=== PATIENT | female | born 1960 | race Caucasian/White ===

== ENCOUNTER 2017-12-29 21:40 | Observation (INO) | payer OTHER ==
[~2017-12-29] VITALS: Ht 165.1 cm; Wt 111.0 kg
[~2017-12-29 21:40] MED LIST: ALPR1TAB2 PO; ASPI-650 PO; CARV12.543 PO; CARV6.2512 PO; CYCL-259 PO; FLEC100T PO; FURO-92 PO; HYDR25TA6 PO; INSU100C SQ-INSULIN; INSU100V8 SQ; LEVO75TA5 PO; LISI5TAB7 PO; POTA25TA4 PO; PROVASTATIN; TRAM-47 PO
[2017-12-30 00:32] VITALS: BP 136/79
[2017-12-30] MEDS ORDERED: DOCUSATE 100 MG CAPSULE PO PRN (01:30)
[2017-12-30] MEDS ORDERED: GUAIFENESIN/DM 200-20MG, 10ML UDC PO PRN (01:30)
[2017-12-30] MEDS ORDERED: BUTALB/APAP/CAFFEINE 50MG/325MG/40MG PO ONE (01:30)
[2017-12-30] MEDS ORDERED: PRAV40TA2 PO ×2 (01:53→02:08)
[2017-12-30] MEDS ORDERED: CARV12.543 PO (02:08)
[2017-12-30] MEDS ORDERED: DULO20CA45 PO (02:08)
[2017-12-30] MEDS ORDERED: LISI-170 PO (02:08)
[2017-12-30] MEDS ORDERED: APIX5TAB PO (02:08)
[2017-12-30] MEDS ORDERED: PARO20TA98 PO (02:08)
[2017-12-30] MEDS ORDERED: PAROXETINE 20 MG TABLET PO SCH ×2 (02:30→09:00)
[2017-12-30 05:28] LABS: BASOPHILS # (AUTO) 0.14 x10^3/uL (0-0.1); BASOPHILS % (AUTO) 1 % (0-1); EOSINOPHILS # (AUTO) 0.24 x10^3/uL (0-0.4); EOSINOPHILS % (AUTO) 2 % (1-7); LYMPHOCYTES # (AUTO) 4.09 x10^3/uL (1-3.4); LYMPHOCYTES % (AUTO) 38 % (22-44); MD NO; MEAN CORPUSCULAR HEMOGLOBIN 29.1 pg (27.0-34.8); MEAN CORPUSCULAR HGB CONC 34.3 g/dL (32.4-35.8); MEAN CORPUSCULAR VOLUME 84.7 fL (80-100); MEAN PLATELET VOLUME 9.1 fL (7.4-10.4); MONOCYTES # (AUTO) 0.74 x10^3/uL (0.2-0.8); MONOCYTES % (AUTO) 7 % (2-9); NEUTROPHILS # (AUTO) 5.56 x10^3/uL (1.8-6.8); NEUTROPHILS % (AUTO) 52 % (42-75); PLATELET COUNT 223 x10^3/uL (130-400); RED BLOOD COUNT 5.21 x10^6/uL (3.82-5.3); RED CELL DISTRIBUTION WIDTH 12.9 % (9.6-15.2)
[2017-12-30 05:46] LABS: CHLORIDE 101 mmol/L (98-107)
[2017-12-30 05:49] LABS: HEMOGLOBIN A1C 9.1 % (4.2-6.3)
[2017-12-30 05:54] LABS: TROPONIN I < 0.015 ng/mL (0.000-0.045)
[2017-12-30] MEDS ORDERED: CARVEDILOL 12.5 MG TABLET PO SCH (06:00)
[2017-12-30 06:02] LABS: ALBUMIN 3.3 g/dL (3.4-5.0); ANION GAP 9 mmol/L (5-15); CALCIUM 8.9 mg/dL (8.5-10.1); CHOL/HDL RATIO 3.3; CHOLESTEROL, TOTAL 137 mg/dL (140-239); CREATININE 1.02 mg/dL (0.55-1.02); HDL CHOL % 30 % (28-40); HDL CHOLESTEROL (DIRECT) 41 mg/dL (40-60); LDL CHOLESTEROL,CALCULATED 69 mg/dL (54-169); LDL/HDL RATIO 1.7 (0.5-3.0); THYROID STIMULATING HORMONE 0.765 mIU/L (0.358-3.740); TRIGLYCERIDES 134 mg/dL (50-200); VLDL CHOLESTEROL 27 mg/dL (0-25)
[2017-12-30] MEDS ORDERED: INSULIN LISPRO 100 UNITS/ML, PEN SQ-INSULIN SCH (07:00)
[2017-12-30 07:08] VITALS: BP 132/80
[2017-12-30] MEDS ORDERED: MAGNESIUM SULFATE PMX 2GM/50ML 50 ML IV ONE (07:30)
[2017-12-30] MEDS ORDERED: POTASSIUM CHLORIDE 20 MEQ TAB.ER.PRT PO SCH (07:30)
[2017-12-30] MEDS: POTASSIUM CHLORIDE 20 MEQ TAB.ER.PRT PO SCH ×2 (08:11→16:55)
[2017-12-30] MEDS: LEVOTHYROXINE 88 MCG TABLET PO SCH (08:11)
[2017-12-30] MEDS ORDERED: DULOXETINE 20 MG CAPSULE.DR PO SCH (09:00)
[2017-12-30] MEDS ORDERED: APIXABAN 5 MG TABLET PO SCH (09:00)
[2017-12-30] MEDS ORDERED: PROCHLORPERAZINE 5 MG/ML, 2ML IVPush PRN (10:00)
[2017-12-30] MEDS ORDERED: KETOROLAC 30 MG/1 ML IVPush PRN (10:00)
[2017-12-30 11:20] LABS: TROPONIN I < 0.015 ng/mL (0.000-0.045)
[2017-12-30] MEDS: SODIUM CHLORIDE 0.9% 1,000 ML IV SCH (11:37)
[2017-12-30] MEDS: INSULIN LISPRO 100 UNITS/ML, PEN SQ-INSULIN SCH ×3 (11:41→21:47)
[2017-12-30] MEDS: BUTALB/APAP/CAFFEINE 50MG/325MG/40MG PO PRN ×2 (11:56→21:46)
[2017-12-30 13:23] VITALS: BP 127/79
[2017-12-30] MEDS ORDERED: PRAVASTATIN 40 MG TABLET PO SCH (21:00)
[2017-12-30 21:19] VITALS: BP 139/75
[2017-12-30] MEDS: DULOXETINE 20 MG CAPSULE.DR PO SCH (21:45)
[2017-12-30] MEDS: LISINOPRIL 20 MG TABLET PO SCH (21:46)
[2017-12-30] MEDS: PRAVASTATIN 40 MG TABLET PO SCH (21:46)
[2017-12-31 02:00] VITALS: BP 139/80
[2017-12-31] MEDS: BUTALB/APAP/CAFFEINE 50MG/325MG/40MG PO PRN ×3 (04:04→21:05)
[2017-12-31 07:05] VITALS: BP 131/76
[2017-12-31] MEDS: INSULIN LISPRO 100 UNITS/ML, PEN SQ-INSULIN SCH ×4 (07:46→20:34)
[2017-12-31] MEDS: ONDANSETRON 2MG/ML, 2ML IVPush PRN ×2 (08:28→15:44)
[2017-12-31] MEDS: LEVOTHYROXINE 88 MCG TABLET PO SCH (09:00)
[2017-12-31] MEDS: SODIUM CHLORIDE 0.9% 1,000 ML IV SCH (10:00)
[2017-12-31 13:47] VITALS: BP_SYST 119; BP_SYST 123; BP_SYST 132; BP_DIAS 79; BP_DIAS 80; BP_DIAS 83
[2017-12-31] MEDS ORDERED: PROCHLORPERAZINE 5 MG/ML, 2ML IVPush PRN (16:00)
[2017-12-31 20:00] VITALS: BP 144/80
[2017-12-31] MEDS: DULOXETINE 20 MG CAPSULE.DR PO SCH (21:05)
[2017-12-31] MEDS: PRAVASTATIN 40 MG TABLET PO SCH (21:05)
[2017-12-31] MEDS: LISINOPRIL 20 MG TABLET PO SCH (21:05)
[2018-01-01] VITALS (8 sets, daily range): BP systolic 116–162; BP diastolic 72–87
[2018-01-01 05:55] LABS: CHLORIDE 104 mmol/L (98-107)
[2018-01-01 05:56] LABS: BASOPHILS # (AUTO) 0.11 x10^3/uL (0-0.1); BASOPHILS % (AUTO) 2 % (0-1); EOSINOPHILS # (AUTO) 0.32 x10^3/uL (0-0.4); EOSINOPHILS % (AUTO) 5 % (1-7); LYMPHOCYTES # (AUTO) 3.44 x10^3/uL (1-3.4); LYMPHOCYTES % (AUTO) 48 % (22-44); MD NO; MEAN CORPUSCULAR HEMOGLOBIN 28.8 pg (27.0-34.8); MEAN CORPUSCULAR HGB CONC 34.1 g/dL (32.4-35.8); MEAN CORPUSCULAR VOLUME 84.4 fL (80-100); MEAN PLATELET VOLUME 9.2 fL (7.4-10.4); MONOCYTES # (AUTO) 0.47 x10^3/uL (0.2-0.8); MONOCYTES % (AUTO) 7 % (2-9); NEUTROPHILS # (AUTO) 2.79 x10^3/uL (1.8-6.8); NEUTROPHILS % (AUTO) 39 % (42-75); PLATELET COUNT 175 x10^3/uL (130-400); RED BLOOD COUNT 4.74 x10^6/uL (3.82-5.3); RED CELL DISTRIBUTION WIDTH 12.6 % (9.6-15.2)
[2018-01-01 06:04] LABS: ALANINE AMINOTRANSFERASE 34 U/L (12-78); ALKALINE PHOSPHATASE 77 U/L (45-117); ANION GAP 6 mmol/L (5-15); BILIRUBIN,TOTAL 0.7 mg/dL (0.2-1.0); CALCIUM 8.6 mg/dL (8.5-10.1); CREATININE 1.04 mg/dL (0.55-1.02); TOTAL PROTEIN 6.7 g/dL (6.4-8.2)
[2018-01-01] MEDS: INSULIN LISPRO 100 UNITS/ML, PEN SQ-INSULIN SCH ×4 (07:00→21:08)
[2018-01-01] MEDS ORDERED: REGADENOSON 0.4 MG/5 ML SYRINGE ONE ×2 (08:19→09:49)
[2018-01-01] MEDS: LEVOTHYROXINE 88 MCG TABLET PO SCH (08:27)
[2018-01-01] MEDS ORDERED: SODIUM CHLORIDE 0.9% 1,000 ML IV SCH (10:30)
[2018-01-01] MEDS: ONDANSETRON 2MG/ML, 2ML IVPush PRN (11:17)
[2018-01-01] MEDS ORDERED: KETOROLAC 30 MG/1 ML IVPush ONE (13:30)
[2018-01-01] MEDS ORDERED: DIPHENHYDRAMINE 50 MG/ML, 1ML IVPush ONE (13:30)
[2018-01-01] MEDS ORDERED: KETOROLAC 30 MG/1 ML ONE (13:33)
[2018-01-01] MEDS ORDERED: DIPHENHYDRAMINE 50 MG/ML, 1ML ONE (13:33)
[2018-01-01 13:50] LABS: CLOSTRIDIUM DIFFICILE ANTIGEN NEGATIVE; CLOSTRIDIUM DIFFICILE TOXIN NEGATIVE (Negative)
[2018-01-01] MEDS ORDERED: METOCLOPRAMIDE 5 MG/ML, 2ML IVPush PRN (17:00)
[2018-01-01] MEDS ORDERED: CARVEDILOL 3.125 MG TABLET ONE (17:46)
[2018-01-01] MEDS: SODIUM CHLORIDE 0.9% 1,000 ML IV SCH (19:22)
[2018-01-01] MEDS: DULOXETINE 20 MG CAPSULE.DR PO SCH (21:08)
[2018-01-01] MEDS: LISINOPRIL 20 MG TABLET PO SCH (21:08)
[2018-01-02] MEDS: SODIUM CHLORIDE 0.9% 1,000 ML IV SCH (01:30)
[2018-01-02] MEDS: BUTALB/APAP/CAFFEINE 50MG/325MG/40MG PO PRN (01:34)
[2018-01-02 01:58] VITALS: BP 167/80
[2018-01-02 06:00] LABS: BASOPHILS # (AUTO) 0.07 x10^3/uL (0-0.1); BASOPHILS % (AUTO) 1 % (0-1); EOSINOPHILS % (AUTO) 4 % (1-7); LYMPHOCYTES # (AUTO) 3.26 x10^3/uL (1-3.4); LYMPHOCYTES % (AUTO) 48 % (22-44); MD NO; MEAN CORPUSCULAR HEMOGLOBIN 28.9 pg (27.0-34.8); MEAN CORPUSCULAR HGB CONC 33.9 g/dL (32.4-35.8); MEAN CORPUSCULAR VOLUME 85.2 fL (80-100); MEAN PLATELET VOLUME 9.1 fL (7.4-10.4); MONOCYTES # (AUTO) 0.51 x10^3/uL (0.2-0.8); MONOCYTES % (AUTO) 8 % (2-9); NEUTROPHILS # (AUTO) 2.67 x10^3/uL (1.8-6.8); NEUTROPHILS % (AUTO) 39 % (42-75); PLATELET COUNT 168 x10^3/uL (130-400); RED BLOOD COUNT 4.53 x10^6/uL (3.82-5.3); RED CELL DISTRIBUTION WIDTH 13.1 % (9.6-15.2)
[2018-01-02 06:11] LABS: CHLORIDE 107 mmol/L (98-107)
[2018-01-02 06:28] LABS: ALANINE AMINOTRANSFERASE 28 U/L (12-78); ALBUMIN 2.8 g/dL (3.4-5.0); ALKALINE PHOSPHATASE 72 U/L (45-117); ANION GAP 5 mmol/L (5-15); BILIRUBIN,TOTAL 0.5 mg/dL (0.2-1.0); CALCIUM 8.1 mg/dL (8.5-10.1); CREATININE 1.11 mg/dL (0.55-1.02); THYROID STIMULATING HORMONE 0.829 mIU/L (0.358-3.740); TOTAL PROTEIN 6.2 g/dL (6.4-8.2)
[2018-01-02 06:55] VITALS: BP_SYST 140; BP_SYST 150; BP_SYST 175; BP_DIAS 70; BP_DIAS 82; BP_DIAS 83
[2018-01-02] MEDS: INSULIN LISPRO 100 UNITS/ML, PEN SQ-INSULIN SCH (08:14)
[2018-01-02] MEDS: LEVOTHYROXINE 88 MCG TABLET PO SCH (08:14)
[2018-01-02 11:00] VITALS: BP 163/94
== END 2018-01-02 11:13 | disposition home or self-care (01) ==
LOC: 5SO 12-30 00:19 → INTOOBSV 12-30 00:19 → UNDOADMOB 12-30 00:19 → OBSVTOIN 12-30 00:19 → 5SO 01-02 11:05 → DCLOUNGE 01-02 11:05 → UNDODISOB 01-02 11:13
PROVIDERS: ADMIT Internal Medicine; ATTEND Internal Medicine
DX: R55 Syncope and collapse (principal); I11.0 Hypertensive heart disease with heart failure; I50.32 Chronic diastolic (congestive) heart failure; I25.10 Atherosclerotic heart disease of native coronary artery without angina pectoris; E11.9 Type 2 diabetes mellitus without complications; E03.9 Hypothyroidism, unspecified; F32.9 Major depressive disorder, single episode, unspecified; I48.91 Unspecified atrial fibrillation; G43.909 Migraine, unspecified, not intractable, without status migrainosus; E87.6 Hypokalemia; E66.01 Morbid (severe) obesity due to excess calories; E78.5 Hyperlipidemia, unspecified; E05.90 Thyrotoxicosis, unspecified without thyrotoxic crisis or storm; G89.29 Other chronic pain; G47.30 Sleep apnea, unspecified; Z80.49 Family history of malignant neoplasm of other genital organs; Z82.49 Family history of ischemic heart disease and other diseases of the circulatory system; Z87.891 Personal history of nicotine dependence
CPT/HCPCS: 36415; 78452; 80048; 80053; 80061; 82040; 82962; 83036; 83690; 83735; 84100; 84443; 84484; 85025; 87324; 93017; 94660; 96361; 96365; 96366; 96372; 96375; 97162; 97165; 97535; A9502; C8929; C9898; G0378; G8978; G8979; G8980; J0780; J1200; J1815; J1885; J2405; J2785; J3475; J7030; 99285